=== PATIENT | female | born 2000 | race Two or more races ===

== ENCOUNTER 2021-03-20 16:40 | Emergency (ER) | payer OTHER, SELFPAY ==
[2021-03-20 16:50] VITALS: BP 115/52; PULSE 70; RESP 18; TEMP 36.6; O2SAT 98; BMI 25.7
[2021-03-20 17:19] VITALS: BP 111/52; PULSE 70; RESP 18; TEMP 36.6; O2SAT 98; BMI 25.8
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
--- NOTE | 2021-03-20 17:50 | HMH.EDUTC ---
[facility] [place]ression: Toenail torn away Disposition: Home, Self-Care Condition on Discharge: Good Instructions: DI for Nail Avulsion Injury Additional Instructions: Soak foot daily in warm water and epson salt and pat area dry and apply ointment and bandage as prescribed Change dressing twice daily and appy ointment with changes and anytime it gets soiled Return if needed Follow up with Podiatry for further treatment and evaluation Your nail may or may not grow back For the first couple of days, ease any pain and swelling by propping up your foot. Use pillows so that it's above the level of your heart Follow up immediatley if any redness or signs of infection Prescriptions: Bacitracin [Bacitracin Oint 0.9GM UDP] 1 each TP BID 10 Days #20 packet Transmission Status: Received by [facility] Referrals: Provider,Referral, MD [Primary Care Provider] - As needed Rosetta Goodwin DPM [Staff Physician] - Jyoti Francis APRN [Nurse Practitioner] - Forms: Work/School Release Time of Disposition: 18:05 Medical Decision Making - Aaron Inquiry Pt receiving controlled substance: No Aaron was queried for this patient: No Vital Signs: 03/20/21 16:50 03/20/21 17:19 03/20/21 18:18 Temperature 97.9 F 97.9 F 98.4 F Temperature Source Oral Oral Pulse Rate 74 Pulse Rate [Right Radial] 70 70 Respiratory Rate 18 18 18 Blood Pressure 119/67 Blood Pressure [Right Arm] 115/52 L 111/52 L Blood Pressure Mean [Right Arm] 73 71 Blood Pressure Source [Right Arm] Automatic Cuff Blood Pressure Position [Right Arm] Sitting 02 Sat by Pulse Oximetry 98 98 Oxygen Delivery Method Room Air - Radiology Data #1 Image(s): Foot/Toes Image Reviewed: Yes I reviewed the patient's radiology image Preliminary Findings: No Fracture Seen - Physician Consults Physician Consulted: Jyoti Francis Time: 17:54 Reason -: Podiatry Eval/Care Comment/Response: Spoke with Jyoti Francis podiatry about toenail being torn off advised to clean with betadine, bacitracin to nailbed and soak in warm water and epson salt daily and follow up in office if needed Medical Decision Narrative: Nailbed area cleaned with betadine and saline [facility] [place] - General Stated complaint: ao @0615 hit left big toe Time Seen by Provider: 03/20/21 17:00 Mode of Arrival: Ambulatory Source of Information: Patient Limitations: No Limitations Description of Symptoms (Recalled from Triage Doc. by RN): pt kicked a step with her left foot and lost her big toe. HEENT Symptoms (Recalled from RN notes): No Resp Symptoms (Recalled from RN notes): No Skin Symptoms (Recalled from RN notes): No MS Symptoms (Recalled from RN notes): Yes (pt kicked a step and lost her big toe on her L foot) Functional Status (Recalled from RN notes): na - History of Present Illness Provider Complaint: Patient primarly [place] Citizen speaking but can understand [place] and communicate with staff. Patient advised was walking up steps last night when she hit her left great toe on the step and tore off her toenail State that she is having pain in left great toe - Related Data Home Medications Medication Instructions Recorded Confirmed Azithromycin [Z-David 250mg Tab*] 250 mg PO UD DOSE PK 12/05/19 12/05/19 Oseltamivir Phosphate [Tamiflu 75 mg PO BID 12/05/19 12/05/19 75mg Capsule] Previous Rx's Medication Instructions Recorded Ondansetron [Zofran 4mg ODT] 4 mg PO Q8HP PRN #10 tab.rapdis 12/04/19 Bacitracin [Bacitracin Oint 0.9GM 1 each TP BID 10 Days #20 packet 03/20/21 UDP] Allergies Allergy/AdvReac Type Severity Reaction Status Date / Time ceftriaxone [From Rocephin] Allergy Verified 03/20/21 17:25 - Worker's Comp Is this a Worker's Comp case?: No [facility] History - Hepatitis A Screen Drug use history?: No High risk sexual behaviors?: No History of sexually transmitted infection?: No Currently employed?: 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
[2021-03-20 18:18] VITALS: BP 119/67; PULSE 74; RESP 18; TEMP 36.9
== END 2021-03-20 18:25 | disposition home or self-care (01) ==
PROVIDERS: Emergency Provider Nurse Practitioner
DX: S91.202A Unspecified open wound of left great toe with damage to nail, initial encounter (principal); W22.09XA Striking against other stationary object, initial encounter; Y92.89 Other specified places as the place of occurrence of the external cause
CPT/HCPCS: 73660; 99202; G0463

== ENCOUNTER 2021-04-24 19:30 | Emergency (ER) | payer OTHER, SELFPAY ==
[2021-04-24 19:31] VITALS: BP 120/65; PULSE 68; RESP 18; TEMP 37; O2SAT 97; BMI 20.5
--- NOTE | 2021-04-24 19:37 | ECG_ITS ---
APPROVED REPORT Exam: Resting ECG HR:71 bpm ECG Measurements Heart Rate 71 AXES OK 138 P 48 QRSd 116 QRS 38 QT 416 T 34 QTc 452 Conclusion Normal sinus rhythm Incomplete right bundle branch block Borderline ECG Electronically signed by : Marcelo Ellington, 04/25/2021 14:28:40
--- NOTE | 2021-04-24 19:57 | XR_ITS ---
PROCEDURE INFORMATION: Exam: XR Chest Exam date and time: 04/24/2021 7:57 PM Age: 20 years old Clinical indication: Chest wall pain; Additional info: Cp TECHNIQUE: Imaging protocol: XR of the chest. Views: 2 views. COMPARISON: CR XR CHEST 2V 12/05/2019 3:59 AM FINDINGS: Lungs: Unremarkable. No consolidation. Pleural spaces: Unremarkable. No pleural effusion. No pneumothorax. Heart/Mediastinum: Unremarkable. No cardiomegaly. Bones/joints: Unremarkable. IMPRESSION: No acute findings. PROCEDURE INFORMATION: Exam: XR Abdomen Exam date and time: 04/24/2021 7:57 PM Age: 20 years old Clinical indication: Chest wall pain; Additional info: Cp TECHNIQUE: Imaging protocol: XR of the abdomen. Views: 2 Views. Upright and supine views. COMPARISON: CR XR CHEST 2V 12/05/2019 3:59 AM FINDINGS: Gastrointestinal tract: Normal. No bowel dilation. Intraperitoneal space: Normal. No free air. Bones/joints: Unremarkable for age. IMPRESSION: No acute findings.
[2021-04-24 20:05] LABS: Basophils % 0.5 % (0.1-2.0); Eosinophils # 0.1 K/mm3 (0.0-0.4); Eosinophils % 1.7 % (0.1-12.0); Hemoglobin 12.6 g/dL (12.2-16.2); Lymphocytes # 1.3 K/mm3 (0.7-4.5); Lymphocytes % 22.7 % (10-50); Mean Corpuscular HGB Conc 34.1 g/dL (31.8-35.4); Mean Corpuscular Hemoglobin 29.7 pg (27.0-31.2); Mean Corpuscular Volume 87.2 fl (81-99); Mean Platelet Volume 7.6 fl (7.4-10.4); Monocytes # 0.2 K/mm3 (0.1-1.0); Monocytes % 4.1 % (1.7-9.3); Neutrophils # 4.1 K/mm3 (1.8-7.8); Neutrophils % 70.9 % (37.0-80.0); Platelet Count 225 K/mm3 (142-424); Red Blood Count 4.24 M/mm3 (4.20-5.40); Red Cell Distribution Width 13.5 % (11.5-17.5); White Blood Count 5.8 K/mm3 (4.5-13.0)
[2021-04-24 20:23] LABS: Alanine Aminotransferase 17 U/L (12-78); Albumin Level 4.8 g/dl (3.5-5.0); Albumin/Globulin Ratio 1.5 (1.1-1.8); Alkaline Phosphatase 69 U/L (38-126); Aspartate Amino Transferase 29 U/L (14-36); Bilirubin,Total 1.3 mg/dl (0.2-1.3); Blood Urea Nitrogen 13 mg/dl (7-17); Carbon Dioxide 25 mmol/L (22.0-30.0); Chloride 105 mmol/L (98-107); Creatinine Clearance Estimated 111 mL/min (50-200); Estimated Glomerular Filt Rate 108 ml/min (>60); GFR (African American) 130 ML/MIN (>60); Globulin 3.1 g/dL (1.3-3.2); Glucose 81 mg/dl (74-100); Sodium 140 mmol/L (136-145); Total Protein,Serum 7.9 g/dl (6.3-8.2)
[2021-04-24 20:28] LABS: C-Reactive Protein 39.5 mg/L (0-4)
[2021-04-24 20:40] LABS: Troponin I < 0.01 ng/ml (0.00-0.034)
--- NOTE | 2021-04-24 20:43 | HMH.EDEPIS ---
ED Disposition Clinical Impression: Epistaxis Sinusitis Qualifiers: Sinusitis location: unspecified location Chronicity: acute Recurrence: not specified as recurrent Qualified Code(s): J01.90 - Acute sinusitis, unspecified Disposition: Home, Self-Care Condition on Discharge: Good Instructions: DI for Nosebleed, DI for Sinusitis Additional Instructions: use meds and see pcp for follow up Prescriptions: levoFLOXacin [Levaquin 500mg tab] 500 mg PO DAILY #7 tab [facility]: [facility] predniSONE [Prednisone 20mg Tab] 20 mg PO BID #10 tab Transmission Status: Pending to [facility] Referrals: Provider,Referral, [Primary Care Provider] - - Critical Care Critical Care Time: No Attestation: On 04/24/21, the high probability of a clinically significant, sudden or life threatening deterioration of the following system(s) required my full and direct attention, intervention and personal management. The time I documented below is in addition to time spent performing reported procedures but includes the following listed in this critical care notation. Medical Decision Making - Medical Records Medical records reviewed: Yes: I reviewed the patient's medical records. - Aaron Inquiry Pt receiving controlled substance: No Vital Signs: 04/24/21 19:31 Temperature 98.6 F Temperature Source Oral Pulse Rate [Right] 68 Respiratory Rate 18 Blood Pressure [Right Arm] 120/65 Blood Pressure Mean [Right Arm] 83 02 Sat by Pulse Oximetry 97 - Lab Data Lab results reviewed: Yes: I reviewed the patient's lab results. Lab Results 04/24/21 19:54: WBC 5.8, RBC 4.24, Hgb 12.6, Hct 37.0, MCV 87.2, MCH 29.7, MCHC 34.1, RDW 13.5, Plt Count 225, MPV 7.6, Neut % (Auto) 70.9, Lymph % (Auto) 22.7, [place] % (Auto) 4.1, Eos % (Auto) 1.7, Baso % (Auto) 0.5, Neut # (Auto) 4.1, Lymph # (Auto) 1.3, [place] # (Auto) 0.2, Eos # (Auto) 0.1, Baso # (Auto) 0.0 04/24/21 19:54: Sodium 140, Potassium 4.0, Chloride 105, Carbon Dioxide 25, Anion Gap 14.0, BUN 13, Creatinine 0.70, Estimated Creat Clear 111, Estimated GFR 108, Est GFR ( Amer) 130, Glucose 81, Calcium 9.0, Total Bilirubin 1.3, AST 29, ALT 17, Alkaline Phosphatase 69, Troponin I < 0.01, C-Reactive Protein 39.5 H, Total Protein 7.9, Albumin 4.8, Globulin 3.1, Albumin/Globulin Ratio 1.5, Procalcitonin 0.070 04/24/21 20:45: Urine Color Yellow, Urine Appearance Sl cloudy, Urine pH 6.0, Ur Specific [place] 1.025, Urine Protein Trace, Urine Glucose (UA) Negative, Urine Ketones 2+, Urine Blood 1+, Urine Nitrate Negative, Urine Bilirubin Negative, Urine Urobilinogen 0.2, Ur Leukocyte Esterase Negative, Urine RBC 5-10, Urine WBC 3-5, Ur Squamous Epith Cells 3-5, Urine Bacteria 1+ 04/24/21 20:45: Urine HCG, Qual Negative Result diagrams: 04/24/21 19:54 04/24/21 19:54 Orders (Tests/Meds): ED MEDICATIONS Generic Name Dose Route Start Last Admin Trade Name Freq PRN Reason Stop Dose Admin Sodium Chloride 1,000 mls @ 999 mls/hr 04/24/21 20:00 04/24/21 19:52 Sod Chlor 0.9% 1000ml Bag IV 04/24/21 21:00 999 mls/hr .Q1H1M RASHARD Administration ORDERS Category Date Time Status Complete Blood Count Auto Diff Stat Lab 04/24/21 19:54 Results Erythrocyte Sedimentation Rate Stat Lab 04/24/21 19:54 Results Troponin I Q3H Lab 04/24/21 23:00 Ordered Troponin I Q3H Lab 04/25/21 02:00 Ordered - Radiology Data #1 Image(s): Chest Image Reviewed: Yes I reviewed the patient's radiology image Preliminary Findings: Normal/NAD - ECG Data Tracing #1 Normal Sinus Rhythm: Yes Ischemic changes: non-specific ST-T wave changes Medical Decision Narrative: prob related to sinus congestion - no active bleeding Epistaxis HPI - General Chief complaint: Epistaxis Stated complaint: chest pain,nose bleed,SPICER<Back pain Time Seen by Provider: 04/24/21 20:00 Mode of Arrival: Ambulatory Source of Information: Patient, Relative, Medic
[2021-04-24 21:02] LABS: Appearance,Urine SL CLOUDY (Clear); Bilirubin,Urine Negative (Negative); Blood, Urine 1+ (Negative); Color,Urine YELLOW (Yellow); Glucose,Urine (UA) Negative (Negative); Ketones,Urine 2+ (Negative); Leukocyte Esterase,Urine Negative (Negative); Microscopic, Urine URINE MICROSCOPIC (MICROSCOPIC); Nitrate,Urine Negative (Negative); Protein,Urine TRACE (Negative); Specific Gravity, Urine 1.025 (1.005-1.030); Urobilinogen,Urine 0.2 EU/dl (0.2)
[2021-04-24 21:13] LABS: Urine Pregnancy, HCG Qual. Negative (Negative)
[2021-04-24 21:14] LABS: Bacteria,Urine 1+ /lpf
[2021-04-24 21:24] LABS: Erythrocyte Sedimentation Rate 49 mm/hr (0-20)
[2021-04-24 21:43] VITALS: BP 118/79; PULSE 69; RESP 18; TEMP 37; O2SAT 97
== END 2021-04-24 21:48 | disposition home or self-care (01) ==
PROVIDERS: Emergency Provider Emergency Medicine
DX: R04.0 Epistaxis (principal); J01.90 Acute sinusitis, unspecified
CPT/HCPCS: 71046; 80053; 81001; 81025; 84145; 84484; 85025; 85651; 86140; 93005; 96365; 99283

== ENCOUNTER 2022-03-26 00:05 | Emergency (ER) | payer SELFPAY ==
[2022-03-26 00:06] VITALS: BP 172/111; PULSE 119; RESP 22; TEMP 36.7; O2SAT 98; BMI 26.5
[2022-03-26 00:10] VITALS: BMI 24.2
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
[2022-03-26 00:36] LABS: Basophils # 0.3 K/mm3 (0-0.2); Basophils % 3.2 % (0.1-2.0); Eosinophils # 0.2 K/mm3 (0.0-0.4); Eosinophils % 2.1 % (0.1-12.0); Hematocrit 37.3 % (37.0-47.0); Hemoglobin 12.5 g/dL (12.2-16.2); Lymphocytes # 4.3 K/mm3 (0.7-4.5); Lymphocytes % 42.3 % (10-50); Mean Corpuscular HGB Conc 33.5 g/dL (31.8-35.4); Mean Corpuscular Hemoglobin 29.4 pg (27.0-31.2); Mean Corpuscular Volume 87.8 fl (81-99); Mean Platelet Volume 7.9 fl (7.4-10.4); Monocytes # 0.5 K/mm3 (0.1-1.0); Monocytes % 5.2 % (1.7-9.3); Neutrophils # 4.8 K/mm3 (1.8-7.8); Neutrophils % 47.1 % (37.0-80.0); Platelet Count 349 K/mm3 (142-424); Red Blood Count 4.24 M/mm3 (4.20-5.40); Red Cell Distribution Width 14.3 % (11.5-17.5); White Blood Count 10.1 K/mm3 (4.5-13.0)
[2022-03-26 00:43] LABS: HCG Qualitative, Serum Negative (Negative)
[2022-03-26 00:44] LABS: Alanine Aminotransferase 26 U/L (12-78); Albumin Level 4.8 g/dl (3.5-5.0); Albumin/Globulin Ratio 1.3 (1.1-1.8); Alkaline Phosphatase 78 U/L (38-126); Anion Gap 13.4 mEq/L (5-15); Aspartate Amino Transferase 35 U/L (14-36); Bilirubin,Total 0.3 mg/dl (0.2-1.3); Blood Urea Nitrogen 13 mg/dl (7-17); Calcium 9.5 mg/dl (8.4-10.2); Carbon Dioxide 24 mmol/L (22.0-30.0); Chloride 104 mmol/L (98-107); Creatinine Clearance Estimated 120 mL/min (50-200); Estimated Glomerular Filt Rate 91 ml/min (>60); GFR (African American) 111 ML/MIN (>60); Globulin 3.7 g/dL (1.3-3.2); Glucose 122 mg/dl (74-100); Potassium 3.4 mmoL/L (3.5-5.1); Sodium 138 mmol/L (136-145); Total Protein,Serum 8.5 g/dl (6.3-8.2)
[2022-03-26 01:02] LABS: Procalcitonin 0.045 ng/mL (0.0-2.0)
--- NOTE | 2022-03-26 01:05 | PC.NURSE ---
POLICE AT BEDSIDE.
--- NOTE | 2022-03-26 01:10 | HMH.EDEPIS ---
ED Disposition Clinical Impression: Epistaxis Fracture of nasal septum Qualifiers: Encounter type: initial encounter Fracture type: closed Qualified Code(s): S02.2XXA - Fracture of nasal bones, initial encounter for closed fracture Disposition: Home, Self-Care Condition on Discharge: Good Instructions: DI for Nosebleed Additional Instructions: see ent liseth for follow up Prescriptions: levoFLOXacin [Levaquin 500mg tab] 500 mg PO DAILY #7 tab Transmission Status: Pending to [facility] Referrals: Florina Velazquez APRN [Primary Care Provider] - Kyle Moore MD [Physician] - Tomas Abdi MD [Physician] - - Critical Care Critical Care Time: No Attestation: On 03/26/22, the high probability of a clinically significant, sudden or life threatening deterioration of the following system(s) required my full and direct attention, intervention and personal management. The time I documented below is in addition to time spent performing reported procedures but includes the following listed in this critical care notation. Medical Decision Making - Medical Records Medical records reviewed: Yes: I reviewed the patient's medical records. - Aaron Inquiry Pt receiving controlled substance: No Vital Signs: 03/26/22 00:06 03/26/22 05:17 Temperature 98.1 F Temperature Source Oral Pulse Rate 65 Pulse Rate [Left Radial] 119 H Respiratory Rate 22 Blood Pressure 136/80 Blood Pressure [Right Arm] 172/111 H Blood Pressure Mean 90 Blood Pressure Mean [Right Arm] 131 02 Sat by Pulse Oximetry 98 99 Oxygen Delivery Method Room Air Room Air - Lab Data Lab results reviewed: Yes: I reviewed the patient's lab results. Lab Results 03/26/22 00:22: WBC 10.1, RBC 4.24, Hgb 12.5, Hct 37.3, MCV 87.8, MCH 29.4, MCHC 33.5, RDW 14.3, Plt Count 349, MPV 7.9, Neut % (Auto) 47.1, Lymph % (Auto) 42.3, [place] % (Auto) 5.2, Eos % (Auto) 2.1, Baso % (Auto) 3.2 H, Neut # (Auto) 4.8, Lymph # (Auto) 4.3, [place] # (Auto) 0.5, Eos # (Auto) 0.2, Baso # (Auto) 0.3 H 03/26/22 00:22: Sodium 138, Potassium 3.4 L, Chloride 104, Carbon Dioxide 24, Anion Gap 13.4, BUN 13, Creatinine 0.80, Estimated Creat Clear 120, Estimated GFR 91, Est GFR ( Amer) 111, Glucose 122 H, Calcium 9.5, Total Bilirubin 0.3, AST 35, ALT 26, Alkaline Phosphatase 78, C-Reactive Protein 8.0 H, Total Protein 8.5 H, Albumin 4.8, Globulin 3.7 H, Albumin/Globulin Ratio 1.3 03/26/22 00:22: Serum HCG, Qual Negative 03/26/22 00:22: ESR 98 H 03/26/22 00:22: Procalcitonin 0.045 Result diagrams: 03/26/22 00:22 03/26/22 00:22 Orders (Tests/Meds): ED MEDICATIONS Generic Name Dose Route Start Last Admin Trade Name Freq PRN Reason Stop Dose Admin Sodium Chloride 1,000 mls @ 999 mls/hr 03/26/22 01:00 03/26/22 00:49 Sod Chlor 0.9% 1000ml Bag IV 03/26/22 02:00 999 mls/hr .Q1H1M RASHARD Administration Levofloxacin/Dextrose 500 mg in 100 mls @ 100 mls/hr 03/26/22 03:30 03/26/22 03:24 Levaquin 500mg/100ml Premix IV 04/09/22 03:29 100 mls/hr Q24H RASHARD Administration Sodium Chloride 10 ml 03/26/22 00:47 Sodium Chloride 0.9% 10ml Flush Syringe IV 04/25/22 00:46 NEEDED PRN Maintain IV Site Discontinued Medications Generic Name Dose Route Start Last Admin Trade Name Freq PRN Reason Stop Dose Admin Acetaminophen/Codeine Phosphate 1 packet 03/26/22 03:19 03/26/22 03:21 Acetaminophen 300mg W/Codeine 30mg Take Home Pack (6) PO 03/26/22 03:20 1 packet ONCE ONE Administration Cocaine HCl 4 ml 03/26/22 03:19 03/26/22 03:21 Cocaine 4% Topical Soln 4ml Bottle TP 03/26/22 03:20 4 ml ONCE ONE Administration Methylprednisolone Sodium Succinate 125 mg 03/26/22 03:19 03/26/22 03:22 Methylprednisolone Sod Succ 125mg Vial IV 03/26/22 03:20 125 mg ONCE ONE Administration Ondansetron HCl 4 mg 03/26/22 04:07 03/26/22 04:08 Ondansetron 4mg/2ml Vial IV 03/26/22 04:08 4 mg ONCE ONE Administr
[2022-03-26 01:41] LABS: Erythrocyte Sedimentation Rate 98 mm/hr (0-20)
[2022-03-26 05:17] VITALS: BP 136/80; PULSE 65; PULSE 71; O2SAT 98; O2SAT 99
[2022-03-26 06:14] VITALS: BP 132/75; PULSE 71; RESP 18; TEMP 36.7; O2SAT 99
--- NOTE | 2022-03-26 09:19 | PC.NURSE ---
Attempting to contact pt at this time to inform them of an appt with ENT today. This nurse has attempted to call twice and attempts have been unsuccessful. Will try to call again at a later time.
--- NOTE | 2022-03-26 09:29 | PC.NURSE ---
Attempted a third time to reach pt on the number that was left for us, her sister's, . Was unsuccessful. Pt info has been passed along to ENT.
--- NOTE | 2022-03-26 12:57 | PC.NURSE ---
Received a return call. Pt's sister advises that she will be bringing pt in to see ENT this afternoon. ENT office made aware and agree to see pt.
== END 2022-03-26 06:16 | disposition home or self-care (01) ==
PROVIDERS: Emergency Provider Emergency Medicine; PCP Nurse Practitioner Family
DX: S02.2XXA Fracture of nasal bones, initial encounter for closed fracture (principal); Y04.8XXA Assault by other bodily force, initial encounter; Z88.8 Allergy status to other drugs, medicaments and biological substances
CPT/HCPCS: 70450; 70486; 80053; 84145; 84703; 85025; 85651; 86140; 96365; 96366; 96375; 99284; J1956; J2405

== ENCOUNTER 2025-06-28 15:26 | Emergency (ER) | payer BC, SELFPAY ==
[2025-06-28 15:31] VITALS: BP 136/77; PULSE 82; RESP 16; TEMP 36.8; O2SAT 100; BMI 23.1
[2025-06-28 15:40] VITALS: BP 137/85; PULSE 79; O2SAT 96
--- NOTE | 2025-06-28 15:58 | ED_ITS ---
<Statement entered by Jacqueline Champagne DO - 06/29/25 16:35> I was consulted by the MODE, and we discussed the complexity of problems being addressed. I approve the treatment and management plan for this patient's care in the emergency department, thus performing a substantial portion of the medical decision making. Jacqueline Champagne DO Discharge Plan Disposition Patient Disposition: Home, Self-Care Prescriptions Prescriptions: No Action levofloxacin 500 MG tablet 500 mg PO DAILY Qty: 7 0RF Referrals Follow up/Referrals: Florina Velazquez APRN [Primary Care Provider, Medical] - See instructions Activity Restrictions/Add. Instructions Additional Instructions/Restrictions: Increase fluids and rest. Please do not take more than as directed medications [id number]. Please follow-up with PCP if any problems or concerns. Clinical Impressions Clinical Impression: Viral illness Instructions Patient Instructions: DI for Viral Syndrome Print Language Print Language: Austrian Discharge ED Provider: Jacqueline Champagne General Adult HPI General Chief complaint: Dizziness Stated complaint: dizzy,nausea,took too much benadryl Time Seen by Provider: 06/28/25 15:42 Mode of Arrival: Ambulatory Source of Information: Patient Description of Symptoms (Recalled from ER Triage Doc. by RN): patient presents to the ED for complaints of a headache and dizziness. patient stated she started feeling bad aorund 1:40 pm today and took 6 benadryl pills . het symptoms started after she took the medication. History of Present Illness HPI narrative: 24-year-old female presents to the ED today after her sister forced her to come in after taking 6 Benadryl pills at 140. Patient states that she feels good now. She says she usually takes 6 of these. Patient's sister says that she will take multiple of a lot of pills and does not think about this. Says she also drinks energy drinks. Patient denies this. She says she will have 1 or 2 energy drinks a week. Patient denies any symptoms right now she says she has no pain and feels good. She says she felt bad before she took the medicine and feels good now. I did call poison control and spoke with Onofre. She states that she usually would be exhibiting anticholinergic symptoms, high blood pressure and high heart rate but this patient is not showing those symptoms. She says she has regulated her system and this is why she is not showing signs and symptoms. The peak of this drug is 2 to 4 hours. She told me to watch her for the next 2 hours and then let her go. Related Data Previous Rx's ?Medication ?Instructions ?Recorded levofloxacin 500 mg tablet 500 mg PO DAILY #7 tabs Allergies Allergy/AdvReac Type Severity Reaction Status Date / Time ceftriaxone (From Rocephin) Allergy Verified 03/26/22 13:30 [facility] Disclaimer: The information contained in this section may have been updated after the patient was seen, as this information can be updated by other users. Social History Smoking Status: Never smoker alcohol intake: never current occupational status: student Travel in the last 8 weeks?: None Have you lived/traveled outside [place] in past 30 days?: No Contact w/someone who lives/traveled outside [place] past 30 days?: No Exposure to someone with infectious disease in past 14 days?: No Do you have a fever (greater than 100.4 F or 38 C)?: No Have you tested positive for COVID-19?: No Exposed to someone with COVID-19 in past 14 days?: No Do you have a sore throat?: No Do you have a cough?: No Do you have any weakness?: No Do you have any diarrhea?: No Are you experiencing any unusual bleeding?: No Do you have any muscle aches/pain?: No Do you have any abdominal pain?: No Are you experiencing loss of taste or smell?: No Other Medical History Have you received the Flu Vaccine for this season: Yes Have you received the Pneumonia Vaccine: No ROS Obtained: Yes Systems reviewed as appropriate & no additional complaints except as documented Constitutional Constitutional: Reports as per HPI Physical Exam General General appearance: alert and in no apparent distress Head Head exam: normocephalic Eye Eye exam: Present PERRL and EOMI ENT ENT exam: Present normal oropharynx and mucous membranes moist Neck Neck exam: Present full ROM and trachea midline Respiratory Respiratory exam: Present normal lung sounds bilaterally Cardiovascular Cardiovascular exam: Present regular rate, normal rhythm, normal heart sounds, +S1 and +S2 Abdominal Exam Abdominal exam: Present soft and normal bowel sounds Extremities Exam Extremities exam: Present normal inspection, full ROM and normal capillary refill Neurological Exam Neurological exam: Present alert, oriented X3 and normal gait Skin Skin exam: Present warm, dry and intact Medical Decision Making Medical Records Screening: Per USPSTF and CDC recommendations, given the prevalence of disease in our region, it is our hospital?s policy to screen for HIV and viral Hepatitis for all patients aged 18 and over and those with ongoing risk factors. Aaron Inquiry Pt receiving controlled substance: No Aaron was queried for this patient: No Vital Signs: 06/28/25 15:31 06/28/25 15:40 06/28/25 16:00 Temperature 98.2 F Temperature Source Temporal Artery Scan Pulse Rate 79 86 Pulse Rate [Right Radial] 82 Respiratory Rate 16 Blood Pressure 137/85 131/77 Blood Pressure [Right Arm] 136/77 Blood Pressure Mean [Right Arm] 96 Blood Pressure Source Blood Pressure Source [Right Arm] Automatic Cuff Blood Pressure Position Blood Pressure Position [Right Arm] Sitting 02 Sat by Pulse Oximetry 100 96 100 Oxygen Delivery Method Room Air 06/28/25 17:44 Temperature 98.0 F Temperature Source Oral Pulse Rate 80 Pulse Rate [Right Radial] Respiratory Rate 18 Blood Pressure 155/62 H Blood Pressure [Right Arm] Blood Pressure Mean [Right Arm] Blood Pressure Source Automatic Cuff Blood Pressure Source [Right Arm] Blood Pressure Position Sitting Blood Pressure Position [Right Arm] 02 Sat by Pulse Oximetry Oxygen Delivery Method Room Air Lab Data Lab Results 06/28/25 16:00: WBC 7.8, RBC 3.69 L, Hgb 11.0 L, Hct 33.1 L, MCV 89.7, MCH 29.8, MCHC 33.2, RDW 13.2, Plt Count 260, MPV 10.3, Neut % (Auto) 63.7, Lymph % (Auto) 26.3, Fajardo % (Auto) 6.9, Eos % (Auto) 2.4, Baso % (Auto) 0.4, Neut # (Auto) 5.0, Lymph # (Auto) 2.1, Fajardo # (Auto) 0.5, Eos # (Auto) 0.2, Baso # (Auto) 0.0, Sodium 138, Potassium 4.6, Chloride 102, Carbon Dioxide 25, Anion Gap 15.6 H, BUN 12, Creatinine 0.70, Estimated Creat Clear 124, Estimated GFR 104, Est GFR ( Amer) 125, Glucose 99, Calcium 9.3, Magnesium 1.9, Total Bilirubin 0.9, AST 77 H, ALT 25, Alkaline Phosphatase 41, Troponin I 0.02, Total Protein 8.6 H, Albumin 5.0, Globulin 3.6 H, Albumin/Globulin Ratio 1.4, Lipase 177 06/28/25 16:00 06/28/25 16:00 Orders (Tests/Meds): ED MEDICATIONS Discontinued Medications Generic Name Dose Route Start Last Admin Trade Name Leroyq PRN Reason Stop Dose Admin Sodium Chloride 1,000 mls @ 999 mls/hr 06/28/25 15:50 06/28/25 17:43 Sod Chlor 0.9% 1000ml Bag IV 06/28/25 16:50 Infused .Q1H1M ONE Infusion ORDERS Category Date Time Status CBC [Complete Blood Count Auto Diff] Stat Lab 06/28/25 16:00 Completed Comprehensive Metabolic Panel Stat Lab 06/28/25 16:00 Completed Lipase Stat Lab 06/28/25 16:00 Completed Magnesium Stat Lab 06/28/25 16:00 Completed Trop I [Troponin I] Stat Lab 06/28/25 16:00 Completed Medical Decision Narrative: patient is a 24-year-old female presenting to the emergency department for evaluation for taking 6 Benadryl pills. Patient is hemodynamically stable and nontoxic-appearing upon arrival, afebrile. Differential diagnosis includes overdose, anticholinergic symptoms, among other. Workup will be conducted with hematologic labs, specific imaging. Initial inventions include crystalloid bolus. I did discuss with poison control who advised me to keep an eye on patient for 2 hours.. Patient has no anticholinergic symptoms. She denies any symptoms at all. She says her flulike symptoms have disappeared and she feels good after the meds. She and I had a long discussion about taking more than 2 of any type of medication. I warned her about her liver and kidneys and how those could be damaged taking a lot of medications. Patient will be safe for discharge home after the observation.. Her labs are nonactionable. Critical Care Critical Care Time Critical Care Time: No
[2025-06-28 16:00] VITALS: BP 131/77; PULSE 86; O2SAT 100
[2025-06-28] MEDS: 0.9 % SODIUM CHLORIDE 1000ML 1,000 ML 999 ML IV (16:06)
--- NOTE | 2025-06-28 16:13 | ECG_ITS ---
APPROVED REPORT Exam: Resting ECG HR:79 bpm ECG Measurements Heart Rate 79 AXES SC 124 P 66 QRSd 118 QRS 60 QT 396 T 46 QTc 430 Conclusion SINUS RHYTHM MODERATE INTRAVENTRICULAR CONDUCTION DELAY [110+ ms QRS DURATION] BORDERLINE ECG Electronically signed by : SHANI MICHEL, 06/29/2025 09:19:09
[2025-06-28 16:25] LABS: Hematocrit 33.1 % (37.0-47.0); Hemoglobin 11.0 g/dL (12.2-16.2); Immature Granulocytes % 0.3 %; Mean Corpuscular HGB Conc 33.2 g/dL (31.8-35.4); Mean Corpuscular Hemoglobin 29.8 pg (27.0-31.2); Mean Corpuscular Volume 89.7 fl (81-99); Nucleated Red Blood Cells % 0 %; Platelet Count 260 K/mm3 (142-424); Red Blood Count 3.69 M/mm3 (4.20-5.40); Red Cell Distribution Width-SD 43.7 fL; White Blood Count 7.8 K/mm3 (4.8-10.8)
[2025-06-28 16:28] LABS: Albumin Level 5.0 g/dl (3.5-5.0); Chloride 102 mmol/L (98-107)
[2025-06-28 16:29] LABS: Potassium 4.6 mmoL/L (3.5-5.1); Sodium 138 mmol/L (136-145)
[2025-06-28 16:31] LABS: Alanine Aminotransferase 25 U/L (12-78); Albumin/Globulin Ratio 1.4 (1.1-1.8); Alkaline Phosphatase 41 U/L (38-126); Anion Gap 15.6 mEq/L (5-15); Aspartate Amino Transferase 77 U/L (14-36); Bilirubin,Total 0.9 mg/dl (0.2-1.3); Blood Urea Nitrogen 12 mg/dl (7-17); Carbon Dioxide 25 mmol/L (22.0-30.0); Creatinine Clearance Estimated 124 mL/min (50-200); Creatinine,Serum 0.70 mg/dl (0.52-1.04); Estimated Glomerular Filt Rate 104 ml/min (>60); GFR (African American) 125 ML/MIN (>60); Globulin 3.6 g/dL (1.3-3.2); Total Protein,Serum 8.6 g/dl (6.3-8.2)
[2025-06-28 16:32] LABS: Calcium 9.3 mg/dl (8.4-10.2); Glucose 99 mg/dl (74-100); Lipase 177 U/L (23-300); Magnesium 1.9 mg/dl (1.6-2.3)
[2025-06-28 16:44] LABS: Troponin I 0.02 ng/ml (0.00-0.034)
[2025-06-28 17:44] VITALS: BP 155/62; PULSE 80; RESP 18; TEMP 36.7; O2SAT 100
== END 2025-06-28 17:53 | disposition home or self-care (01) ==
PROVIDERS: Nurse Practitioner; Emergency Provider Student in an Organized Health Care Education/Training Program; PCP Nurse Practitioner Family
DX: R51.9 Headache, unspecified (principal); R42 Dizziness and giddiness; R11.0 Nausea
CPT/HCPCS: 80053; 83690; 83735; 84484; 85025; 93005; 96360; 99284; J7030